=== PATIENT | female | born 1950 | race Caucasian/White ===

== ENCOUNTER 2017-09-26 12:24 | Emergency (ER) | payer MEDICARE, OTHER ==
[2017-09-26 15:05] LABS: URINE PH (Dip) POC 5.5 (5.0-8.5)
[2017-09-26 15:05] LABS: URINE BLOOD (Dip) POC Negative (NEGATIVE); URINE KETONES (Dip) POC Negative (NEGATIVE); URINE LEUKOCYTE EST (Dip) POC Trace (NEGATIVE); URINE NITRITE (Dip) POC Positive (NEGATIVE); URINE TOTAL PROTEIN POC Negative (NEGATIVE)
== END 2017-09-26 15:42 | disposition home or self-care (01) ==
LOC: FTE 12:24
DX: N39.0 Urinary tract infection, site not specified (principal); B37.3 Candidiasis of vulva and vagina; I10 Essential (primary) hypertension; E11.9 Type 2 diabetes mellitus without complications; Z79.4 Long term (current) use of insulin
CPT/HCPCS: 81003; 99284

== ENCOUNTER 2017-11-12 14:20 | Inpatient (IN) | payer MEDICARE, OTHER ==
[2017-11-12] MEDS: LACTATED RINGER'S 1,000 ML IV (17:13)
[2017-11-12 17:19] LABS: ADD MAN DIFF? NO
[2017-11-12 17:22] LABS: WHITE BLOOD COUNT 10.8 10^3/ul (4.8-10.8)
[2017-11-12 17:22] LABS: BASOPHILS % 0.3 % (0.0-2.0); EOSINOPHILS # 0.3 10^3/ul (0.0-0.5); EOSINOPHILS % 2.9 % (0.0-7.0); HEMATOCRIT 37.9 % (37.0-47.0); HEMOGLOBIN 12.9 g/dl (12.0-16.0); LYMPHOCYTES % 27.6 % (15.0-51.0); MEAN CORPUSCULAR HEMOGLOBIN 26.4 pg (29.0-33.0); MEAN CORPUSCULAR VOLUME 77.7 fl (82.0-101.0); MEAN PLATELET VOLUME 12.6 fl (7.4-10.4); MONOCYTE # 0.5 10^3/ul (0.3-0.9); MONOCYTES % 4.4 % (0.0-11.0); NEUTROPHILS % 64.5 % (39.0-77.0); PLATELET COUNT 177 10^3/UL (140-415); RED BLOOD COUNT 4.88 10^6/ul (4.20-5.40); RED CELL DISTRIBUTION WIDTH 13.7 % (11.5-14.5)
[2017-11-12 17:39] LABS: ALANINE AMINOTRANSFERASE 47 IU/L (13-69); ALBUMIN 4.3 g/dl (3.3-4.9); ALBUMIN/GLOBULIN RATIO 1.16; ALKALINE PHOSPHATASE 201 IU/L (42-121); ANION GAP 17 (8-16); ASPARTATE AMINO TRANSFERASE 44 IU/L (15-46); BILIRUBIN,INDIRECT 0.4 mg/dl (0-1.1); BILIRUBIN,TOTAL 0.4 mg/dl (0.2-1.3); BLOOD UREA NITROGEN 15 mg/dl (7-20); CARBON DIOXIDE 30 mmol/L (21-31); CHLORIDE 99 mmol/L (97-110); CREATININE 0.61 mg/dl (0.44-1.00); MAGNESIUM 1.7 mg/dl (1.7-2.5); PHOSPHORUS 3.8 mg/dl (2.5-4.9); SODIUM 142 mmol/L (135-144)
[2017-11-12 17:41] LABS: GLUCOSE 459 mg/dl (70-220)
[2017-11-12] MEDS: CEFEPIME 1GM/50 ML (PMX) 50 ML IVPB (18:33)
[2017-11-12 18:44] LABS: MODE ROOM AIR; MetHgb Venous 0.3 %; Sample Type Blood venous; Site VENOUS LINE; Venous COHb 0.4 %; Venous Fraction OxyHgb 52.4 %; Venous Oxygen Sat 52.8 mmHG (55.0-75.0); Venous Total Hemglobin 10.9 g/dl
[2017-11-12 18:53] LABS: ADD UMIC YES; UR ASCORBIC ACID NEGATIVE (NEGATIVE); UR BACTERIA FEW /HPF (NONE SEEN); UR BILIRUBIN (Dip) NEGATIVE (NEGATIVE); UR BLOOD (Dip) NEGATIVE (NEGATIVE); UR CLARITY SLIGHTLY CLOUDY (CLEAR); UR COLOR YELLOW (YELLOW); UR GLUCOSE (Dip) 3+ mg/dL (NEGATIVE); UR KETONES (Dip) NEGATIVE (NEGATIVE); UR LEUKOCYTE ESTERASE (Dip) 1+ Leu/ul (NEGATIVE); UR NITRITE (Dip) POSITIVE (NEGATIVE); UR RBC 2 /HPF (0-5); UR SPECIFIC GRAVITY (Dip) 1.014 (1.003-1.030); UR TOTAL PROTEIN (Dip) NEGATIVE (NEGATIVE); UR UROBILINOGEN (Dip) NEGATIVE (NEGATIVE); UR WBC 36 /HPF (0-5)
[2017-11-12] MEDS: MAGNESIUM SULFATE 1 GM/D5W 100 ML IVPB (20:10)
[2017-11-12 21:28] LABS: TROPONIN-I < 0.012 ng/ml (0.00-0.12)
[2017-11-13] MEDS ORDERED: ACETAMINOPHEN 325 MG TAB PO (00:30)
[2017-11-13] MEDS ORDERED: ONDANSETRON 4 MG INJ IV ×2 (00:30→06:30)
[2017-11-13] MEDS ORDERED: ALBUTEROL/IPRATROPIUM (NEB) 3 ML AMP HHN (06:30)
[2017-11-13] MEDS ORDERED: DEXTROSE 50% 50 ML SYRINGE IV ×2 (06:30)
[2017-11-13] MEDS ORDERED: GLUCAGON 1 MG INJ IM (06:30)
[2017-11-13] MEDS ORDERED: NACL 0.9% 3 ML SYG IV (06:30)
[2017-11-13] MEDS ORDERED: morphine 2 MG INJ IV (06:30)
[2017-11-13] MEDS ORDERED: GLUCOSE GEL 15 GRAM TUBE PO (06:30)
[2017-11-13] MEDS ORDERED: GLUCOSE GEL 15 GRAM TUBE BUCCAL (06:30)
[2017-11-13] MEDS: SOD CHLORIDE 0.9% 1,000 ML IV ×2 (06:58→16:07)
[2017-11-13] MEDS: CEFTRIAXONE 1 GM/50 ML (PMX) 50 ML IVPB ×2 (06:58→22:14)
[2017-11-13 07:43] LABS: ADD MAN DIFF? NO
[2017-11-13 07:50] LABS: WHITE BLOOD COUNT 8.4 10^3/ul (4.8-10.8)
[2017-11-13 07:50] LABS: BASOPHILS % 0.5 % (0.0-2.0); EOSINOPHILS # 0.3 10^3/ul (0.0-0.5); EOSINOPHILS % 3.9 % (0.0-7.0); HEMATOCRIT 36.5 % (37.0-47.0); HEMOGLOBIN 12.4 g/dl (12.0-16.0); LYMPHOCYTES # 2.8 10^3/ul (0.8-2.9); LYMPHOCYTES % 32.8 % (15.0-51.0); MEAN CORPUSCULAR HEMOGLOBIN 26.3 pg (29.0-33.0); MEAN CORPUSCULAR VOLUME 77.5 fl (82.0-101.0); MEAN PLATELET VOLUME 12.9 fl (7.4-10.4); MONOCYTE # 0.4 10^3/ul (0.3-0.9); MONOCYTES % 4.4 % (0.0-11.0); NEUTROPHIL # 4.9 10^3/ul (1.6-7.5); NEUTROPHILS % 58.2 % (39.0-77.0); PLATELET COUNT 164 10^3/UL (140-415); RED BLOOD COUNT 4.71 10^6/ul (4.20-5.40); RED CELL DISTRIBUTION WIDTH 13.8 % (11.5-14.5)
[2017-11-13] MEDS: GABAPENTIN 300 MG CAP PO ×3 (08:07→22:14)
[2017-11-13] MEDS: LOSARTAN 50 MG TAB PO (08:07)
[2017-11-13] MEDS: METOPROLOL (XL) 50 MG TAB PO (08:07)
[2017-11-13] MEDS: metFORMIN 500 MG TAB PO ×2 (08:07→17:20)
[2017-11-13 08:09] LABS: ALANINE AMINOTRANSFERASE 48 IU/L (13-69); ALBUMIN 3.7 g/dl (3.3-4.9); ALBUMIN/GLOBULIN RATIO 1.08; ALKALINE PHOSPHATASE 142 IU/L (42-121); ANION GAP 15 (8-16); ASPARTATE AMINO TRANSFERASE 49 IU/L (15-46); BILIRUBIN,INDIRECT 0.4 mg/dl (0-1.1); BILIRUBIN,TOTAL 0.4 mg/dl (0.2-1.3); BLOOD UREA NITROGEN 16 mg/dl (7-20); CALCIUM 9.4 mg/dl (8.4-10.2); CARBON DIOXIDE 31 mmol/L (21-31); CHLORIDE 102 mmol/L (97-110); CREATININE 0.63 mg/dl (0.44-1.00); GLUCOSE 361 mg/dl (70-220); POTASSIUM 4.1 mmol/L (3.5-5.1); SODIUM 144 mmol/L (135-144); TOTAL PROTEIN 7.1 g/dl (6.1-8.1)
[2017-11-13] MEDS: INSULIN ASPART [NOVOLOG] 3 ML PEN SC ×6 (08:09→22:16)
[2017-11-13] MEDS: ACETAMINOPHEN 325 MG TAB PO ×2 (08:10→15:24)
[2017-11-13] MEDS: INSULIN ASP PROT/ASPART (70/30) PEN SC (08:25)
[2017-11-13] MEDS ORDERED: INSULIN ISOPHANE SC (09:00)
[2017-11-13] MEDS: LINAGLIPTIN 5 MG TABLET PO (11:12)
[2017-11-13] MEDS: AZITHROMYCIN 500MG/NS (PMX) 250 ML IVPB (11:12)
[2017-11-13] MEDS: ENOXAPARIN 40 MG/0.4 ML SYG SC (11:17)
[2017-11-13 12:07] LABS: CREATINE KINASE 22 IU/L (23-200)
[2017-11-13 12:08] LABS: MAGNESIUM 1.7 mg/dl (1.7-2.5)
[2017-11-13 12:08] LABS: PHOSPHORUS 2.6 mg/dl (2.5-4.9)
[2017-11-13 12:09] LABS: CHOLESTEROL 167 mg/dl (100-200)
[2017-11-13 12:09] LABS: CHOL/HDL RATIO 4.6 RATIO; HDL CHOLESTEROL 36 mg/dl (33-92); LDL CHOLESTEROL,CALCULATED 96 mg/dl; TRIGLYCERIDES 176 mg/dl (0-149)
[2017-11-13 12:23] LABS: CK-MB < 0.22 ng/ml (0.0-2.4); TROPONIN-I < 0.012 ng/ml (0.00-0.12)
[2017-11-13 12:39] LABS: HEPATITIS B SURFACE ANTIGEN NEGATIVE (NEGATIVE)
[2017-11-13 12:57] LABS: HEPATITIS C VIRAL ANTIBODY NEGATIVE (NEGATIVE)
[2017-11-13 12:57] LABS: HEPATITIS B SURFACE ANTIBODY NEGATIVE (NEGATIVE)
[2017-11-14] MEDS: ACCU-CHEK XX (02:35)
[2017-11-14] MEDS: INSULIN ASPART [NOVOLOG] 3 ML PEN SC ×8 (02:41→21:00)
[2017-11-14 05:04] LABS: ADD MAN DIFF? NO
[2017-11-14 05:08] LABS: BASOPHILS % 0.2 % (0.0-2.0); EOSINOPHILS # 0.4 10^3/ul (0.0-0.5); EOSINOPHILS % 3.8 % (0.0-7.0); HEMATOCRIT 35.3 % (37.0-47.0); HEMOGLOBIN 11.9 g/dl (12.0-16.0); LYMPHOCYTES # 2.9 10^3/ul (0.8-2.9); LYMPHOCYTES % 29.8 % (15.0-51.0); MEAN CORPUSCULAR HEMOGLOBIN 26.5 pg (29.0-33.0); MEAN CORPUSCULAR HGB CONC 33.7 g/dl (32.0-37.0); MEAN CORPUSCULAR VOLUME 78.6 fl (82.0-101.0); MEAN PLATELET VOLUME 12.3 fl (7.4-10.4); MONOCYTE # 0.5 10^3/ul (0.3-0.9); MONOCYTES % 5.2 % (0.0-11.0); NEUTROPHIL # 5.8 10^3/ul (1.6-7.5); NEUTROPHILS % 60.6 % (39.0-77.0); PLATELET COUNT 166 10^3/UL (140-415); RED BLOOD COUNT 4.49 10^6/ul (4.20-5.40); RED CELL DISTRIBUTION WIDTH 13.5 % (11.5-14.5)
[2017-11-14 05:08] LABS: WHITE BLOOD COUNT 9.6 10^3/ul (4.8-10.8)
[2017-11-14 05:37] LABS: ANION GAP 13 (8-16); BLOOD UREA NITROGEN 21 mg/dl (7-20); CALCIUM 9.4 mg/dl (8.4-10.2); CARBON DIOXIDE 28 mmol/L (21-31); CHLORIDE 106 mmol/L (97-110); GLUCOSE 343 mg/dl (70-220); MAGNESIUM 1.7 mg/dl (1.7-2.5); PHOSPHORUS 3.3 mg/dl (2.5-4.9); POTASSIUM 3.9 mmol/L (3.5-5.1); SODIUM 143 mmol/L (135-144)
[2017-11-14] MEDS: METOPROLOL (XL) 50 MG TAB PO (08:44)
[2017-11-14] MEDS: LOSARTAN 50 MG TAB PO ×2 (08:44→21:34)
[2017-11-14] MEDS: GABAPENTIN 300 MG CAP PO ×3 (08:44→21:33)
[2017-11-14] MEDS: LINAGLIPTIN 5 MG TABLET PO (08:44)
[2017-11-14] MEDS: metFORMIN 500 MG TAB PO ×2 (08:48→17:45)
[2017-11-14] MEDS: CEFTRIAXONE 1 GM/50 ML (PMX) 50 ML IVPB (08:48)
[2017-11-14] MEDS: ENOXAPARIN 40 MG/0.4 ML SYG SC (08:51)
[2017-11-14] MEDS: INSULIN GLARGINE [LANtus] 3 ML PEN SC (08:51)
[2017-11-14] MEDS: ERTAPENEM SODIUM 1 GM in SOD CHLORIDE 0.9% 100 ML IVPB (11:04)
[2017-11-14 11:39] LABS: HEMOGLOBIN A1C 13.5 % (0-5.9)
[2017-11-14] MEDS: ACETAMINOPHEN 325 MG TAB PO (13:02)
[2017-11-14] MEDS: LIDOCAINE 1% (MPF) 5 ML VIAL SC (13:30)
[2017-11-14] MEDS: MAGNESIUM SULFATE 1 GM/D5W 100 ML IVPB (14:48)
[2017-11-15] MEDS: ACCU-CHEK XX (01:07)
[2017-11-15 08:17] LABS: ADD MAN DIFF? NO
[2017-11-15 08:23] LABS: PLATELET COUNT 156 10^3/UL (140-415)
[2017-11-15 08:26] LABS: BASOPHILS % 0.6 % (0.0-2.0); EOSINOPHILS # 0.3 10^3/ul (0.0-0.5); EOSINOPHILS % 4.4 % (0.0-7.0); HEMATOCRIT 34.6 % (37.0-47.0); LYMPHOCYTES # 2.3 10^3/ul (0.8-2.9); MEAN CORPUSCULAR HEMOGLOBIN 27.2 pg (29.0-33.0); MEAN CORPUSCULAR HGB CONC 34.7 g/dl (32.0-37.0); MEAN CORPUSCULAR VOLUME 78.5 fl (82.0-101.0); MEAN PLATELET VOLUME 12.4 fl (7.4-10.4); MONOCYTE # 0.3 10^3/ul (0.3-0.9); NEUTROPHIL # 4.1 10^3/ul (1.6-7.5); NEUTROPHILS % 57.7 % (39.0-77.0); PLATELET COUNT 152 10^3/UL (140-415); RED BLOOD COUNT 4.41 10^6/ul (4.20-5.40); RED CELL DISTRIBUTION WIDTH 13.8 % (11.5-14.5)
[2017-11-15] MEDS: LINAGLIPTIN 5 MG TABLET PO (08:29)
[2017-11-15] MEDS: GABAPENTIN 300 MG CAP PO ×3 (08:29→20:57)
[2017-11-15] MEDS: ASPIRIN (EC) 81 MG TAB PO (08:29)
[2017-11-15] MEDS: LOSARTAN 50 MG TAB PO ×2 (08:30→20:58)
[2017-11-15] MEDS: ENOXAPARIN 40 MG/0.4 ML SYG SC (08:32)
[2017-11-15] MEDS: metFORMIN 500 MG TAB PO ×2 (08:37→17:33)
[2017-11-15] MEDS: INSULIN GLARGINE [LANtus] 3 ML PEN SC ×2 (08:39→20:58)
[2017-11-15] MEDS: INSULIN ASPART [NOVOLOG] 3 ML PEN SC ×7 (08:40→20:59)
[2017-11-15 08:44] LABS: PROTIME 13.3 Sec (11.9-14.9)
[2017-11-15 08:45] LABS: PARTIAL THROMBOPLASTIN TIME 28.3 Sec (25.0-35.0); THROMBIN TIME 15.1 SEC (13.8-19.1)
[2017-11-15 08:50] LABS: ANION GAP 12 (8-16); BLOOD UREA NITROGEN 18 mg/dl (7-20); CALCIUM 8.9 mg/dl (8.4-10.2); CARBON DIOXIDE 28 mmol/L (21-31); CHLORIDE 105 mmol/L (97-110); CREATININE 0.63 mg/dl (0.44-1.00); GLUCOSE 287 mg/dl (70-220); MAGNESIUM 1.7 mg/dl (1.7-2.5); SODIUM 141 mmol/L (135-144)
[2017-11-15] MEDS: METOPROLOL 25 MG TAB PO ×2 (11:00→20:57)
[2017-11-15] MEDS: ERTAPENEM SODIUM 1 GM in SOD CHLORIDE 0.9% 100 ML IVPB (11:51)
[2017-11-15] MEDS: GABAPENTIN 100 MG CAP PO ×2 (11:52→20:57)
[2017-11-16] MEDS: ACCU-CHEK XX (02:00)
[2017-11-16] MEDS: DEXTROSE 5%-0.45% NACL 1,000 ML IV (04:15)
[2017-11-16 05:53] LABS: ADD MAN DIFF? NO
[2017-11-16 06:02] LABS: BASOPHILS % 0.4 % (0.0-2.0); EOSINOPHILS # 0.4 10^3/ul (0.0-0.5); EOSINOPHILS % 4.3 % (0.0-7.0); HEMATOCRIT 35.9 % (37.0-47.0); HEMOGLOBIN 11.9 g/dl (12.0-16.0); LYMPHOCYTES # 3.1 10^3/ul (0.8-2.9); LYMPHOCYTES % 30.7 % (15.0-51.0); MEAN CORPUSCULAR HGB CONC 33.1 g/dl (32.0-37.0); MEAN CORPUSCULAR VOLUME 78.6 fl (82.0-101.0); MEAN PLATELET VOLUME 12.6 fl (7.4-10.4); MONOCYTE # 0.5 10^3/ul (0.3-0.9); NEUTROPHIL # 5.9 10^3/ul (1.6-7.5); NEUTROPHILS % 59.2 % (39.0-77.0); PLATELET COUNT 155 10^3/UL (140-415); RED BLOOD COUNT 4.57 10^6/ul (4.20-5.40); RED CELL DISTRIBUTION WIDTH 14.1 % (11.5-14.5)
[2017-11-16 06:37] LABS: ALANINE AMINOTRANSFERASE 39 IU/L (13-69); ALBUMIN 3.4 g/dl (3.3-4.9); ALBUMIN/GLOBULIN RATIO 1.13; ALKALINE PHOSPHATASE 101 IU/L (42-121); ANION GAP 13 (8-16); ASPARTATE AMINO TRANSFERASE 27 IU/L (15-46); BILIRUBIN,INDIRECT 0.1 mg/dl (0-1.1); BILIRUBIN,TOTAL 0.1 mg/dl (0.2-1.3); BLOOD UREA NITROGEN 19 mg/dl (7-20); CALCIUM 9.1 mg/dl (8.4-10.2); CARBON DIOXIDE 29 mmol/L (21-31); CHLORIDE 107 mmol/L (97-110); CREATININE 0.68 mg/dl (0.44-1.00); GLUCOSE 160 mg/dl (70-220); MAGNESIUM 1.6 mg/dl (1.7-2.5); POTASSIUM 3.9 mmol/L (3.5-5.1); SODIUM 145 mmol/L (135-144); TOTAL PROTEIN 6.4 g/dl (6.1-8.1)
[2017-11-16] MEDS: INSULIN ASPART [NOVOLOG] 3 ML PEN SC ×7 (07:35→21:23)
[2017-11-16] MEDS: metFORMIN 500 MG TAB PO ×2 (07:36→17:56)
[2017-11-16] MEDS: ASPIRIN (EC) 81 MG TAB PO (08:36)
[2017-11-16] MEDS: GABAPENTIN 300 MG CAP PO ×2 (08:36→12:31)
[2017-11-16] MEDS: LINAGLIPTIN 5 MG TABLET PO (08:36)
[2017-11-16] MEDS: GABAPENTIN 100 MG CAP PO ×3 (08:36→21:24)
[2017-11-16] MEDS: ENOXAPARIN 40 MG/0.4 ML SYG SC (08:37)
[2017-11-16] MEDS: INSULIN GLARGINE [LANtus] 3 ML PEN SC ×2 (08:56→21:24)
[2017-11-16] MEDS: METOPROLOL 25 MG TAB PO ×2 (10:16→21:25)
[2017-11-16] MEDS: LOSARTAN 50 MG TAB PO ×2 (10:16→21:25)
[2017-11-16] MEDS: ERTAPENEM SODIUM 1 GM in SOD CHLORIDE 0.9% 100 ML IVPB (10:17)
[2017-11-16] MEDS ORDERED: LIDOCAINE 1% (MPF) 30 ML INJ (13:27)
[2017-11-16 13:42] LABS: NIL 0.04 IU/mL; QUANTIFERON(R)-TB GOLD POSITIVE (NEGATIVE); TB-NIL 2.63 IU/mL
[2017-11-16] MEDS ORDERED: ROCURONIUM 50 MG INJ (14:07)
[2017-11-16] MEDS ORDERED: DEXAMETHASONE 4 MG/ML 1 ML INJ (14:07)
[2017-11-16] MEDS ORDERED: GLYCOPYRROLATE 0.4 MG INJ (14:07)
[2017-11-16] MEDS ORDERED: MIDAZOLAM 1 MG/ML 2 ML INJ (14:07)
[2017-11-16] MEDS ORDERED: CEFAZOLIN 1 GM INJ (14:07)
[2017-11-16] MEDS ORDERED: PROPOFOL 20 ML (14:07)
[2017-11-16] MEDS ORDERED: FENTAnyl 50 MCG/ML VIAL (14:07)
[2017-11-16] MEDS ORDERED: NEOSTIGMINE 3 MG/3 ML SYRINGE (14:07)
[2017-11-16] MEDS ORDERED: ONDANSETRON 4 MG INJ (14:07)
[2017-11-16] MEDS ORDERED: LABETALOL HCL 20MG INJ (14:40)
[2017-11-16] MEDS ORDERED: SUGAMMADEX SODIUM 200 MG/2 ML VIAL IV (14:40)
[2017-11-16] MEDS: MAGNESIUM SULFATE 2 GM/50 ML 50 ML IVPB (16:53)
[2017-11-16 18:43] LABS: HEMATOCRIT 33.4 % (37.0-47.0); HEMOGLOBIN 11.3 g/dl (12.0-16.0)
[2017-11-17 01:27] LABS: HEMATOCRIT 33.4 % (37.0-47.0); HEMOGLOBIN 11.1 g/dl (12.0-16.0)
[2017-11-17] MEDS: ACCU-CHEK XX (01:31)
[2017-11-17 06:22] LABS: ADD MAN DIFF? NO
[2017-11-17 06:31] LABS: WHITE BLOOD COUNT 9.6 10^3/ul (4.8-10.8)
[2017-11-17 06:31] LABS: BASOPHILS % 0.1 % (0.0-2.0); HEMATOCRIT 31.6 % (37.0-47.0); HEMOGLOBIN 10.7 g/dl (12.0-16.0); LYMPHOCYTES # 1.4 10^3/ul (0.8-2.9); MEAN CORPUSCULAR HEMOGLOBIN 26.7 pg (29.0-33.0); MEAN CORPUSCULAR HGB CONC 33.9 g/dl (32.0-37.0); MEAN CORPUSCULAR VOLUME 78.8 fl (82.0-101.0); MEAN PLATELET VOLUME 12.2 fl (7.4-10.4); MONOCYTE # 0.2 10^3/ul (0.3-0.9); MONOCYTES % 2.3 % (0.0-11.0); NEUTROPHIL # 7.9 10^3/ul (1.6-7.5); NEUTROPHILS % 82.3 % (39.0-77.0); PLATELET COUNT 149 10^3/UL (140-415); RED BLOOD COUNT 4.01 10^6/ul (4.20-5.40); RED CELL DISTRIBUTION WIDTH 14.2 % (11.5-14.5)
[2017-11-17 06:55] LABS: ALANINE AMINOTRANSFERASE 35 IU/L (13-69); ALBUMIN 3.5 g/dl (3.3-4.9); ALKALINE PHOSPHATASE 71 IU/L (42-121); ANION GAP 17 (8-16); ASPARTATE AMINO TRANSFERASE 27 IU/L (15-46); BILIRUBIN,INDIRECT 0.1 mg/dl (0-1.1); BILIRUBIN,TOTAL 0.1 mg/dl (0.2-1.3); BLOOD UREA NITROGEN 20 mg/dl (7-20); CALCIUM 9.1 mg/dl (8.4-10.2); CARBON DIOXIDE 25 mmol/L (21-31); CHLORIDE 107 mmol/L (97-110); CREATININE 0.67 mg/dl (0.44-1.00); GLUCOSE 230 mg/dl (70-220); POTASSIUM 4.4 mmol/L (3.5-5.1); SODIUM 145 mmol/L (135-144); TOTAL PROTEIN 6.4 g/dl (6.1-8.1)
[2017-11-17] MEDS: ASPIRIN (EC) 81 MG TAB PO (08:48)
[2017-11-17] MEDS: LINAGLIPTIN 5 MG TABLET PO (08:48)
[2017-11-17] MEDS: GABAPENTIN 100 MG CAP PO ×3 (08:48→21:08)
[2017-11-17] MEDS: METOPROLOL 25 MG TAB PO ×2 (08:49→21:02)
[2017-11-17] MEDS: LOSARTAN 50 MG TAB PO ×2 (08:49→21:02)
[2017-11-17] MEDS: INSULIN GLARGINE [LANtus] 3 ML PEN SC ×2 (08:50→21:04)
[2017-11-17] MEDS: INSULIN ASPART [NOVOLOG] 3 ML PEN SC ×7 (08:51→21:00)
[2017-11-17] MEDS: metFORMIN 500 MG TAB PO ×2 (08:54→17:08)
[2017-11-17] MEDS: ERTAPENEM SODIUM 1 GM in SOD CHLORIDE 0.9% 100 ML IVPB (09:48)
[2017-11-17 11:08] LABS: HEMATOCRIT 31.9 % (37.0-47.0); HEMOGLOBIN 10.8 g/dl (12.0-16.0)
[2017-11-17 16:40] LABS: HIV 1&2 ANTIBODY NEGATIVE (NEGATIVE)
[2017-11-17 16:53] LABS: HEMATOCRIT 30.1 % (37.0-47.0); HEMOGLOBIN 10.2 g/dl (12.0-16.0)
[2017-11-17 19:20] LABS: HEMATOCRIT 29.6 % (37.0-47.0); HEMOGLOBIN 10.1 g/dl (12.0-16.0)
[2017-11-17] MEDS: ACETAMINOPHEN 325 MG TAB PO (21:01)
[2017-11-18 01:05] LABS: HEMATOCRIT 29.1 % (37.0-47.0); HEMOGLOBIN 9.8 g/dl (12.0-16.0)
[2017-11-18] MEDS: ACCU-CHEK XX (02:00)
[2017-11-18 06:16] LABS: ADD MAN DIFF? NO
[2017-11-18 06:27] LABS: BASOPHILS % 0.2 % (0.0-2.0); EOSINOPHILS # 0.4 10^3/ul (0.0-0.5); EOSINOPHILS % 3.3 % (0.0-7.0); HEMATOCRIT 30.3 % (37.0-47.0); HEMOGLOBIN 10.2 g/dl (12.0-16.0); LYMPHOCYTES % 32.5 % (15.0-51.0); MEAN CORPUSCULAR HEMOGLOBIN 26.9 pg (29.0-33.0); MEAN CORPUSCULAR HGB CONC 33.7 g/dl (32.0-37.0); MEAN CORPUSCULAR VOLUME 79.9 fl (82.0-101.0); MEAN PLATELET VOLUME 12.1 fl (7.4-10.4); MONOCYTE # 0.6 10^3/ul (0.3-0.9); MONOCYTES % 4.5 % (0.0-11.0); NEUTROPHIL # 7.2 10^3/ul (1.6-7.5); PLATELET COUNT 141 10^3/UL (140-415); RED BLOOD COUNT 3.79 10^6/ul (4.20-5.40); RED CELL DISTRIBUTION WIDTH 14.5 % (11.5-14.5)
[2017-11-18 06:27] LABS: WHITE BLOOD COUNT 12.2 10^3/ul (4.8-10.8)
[2017-11-18 06:49] LABS: ANION GAP 14 (8-16); BLOOD UREA NITROGEN 19 mg/dl (7-20); CALCIUM 8.9 mg/dl (8.4-10.2); CARBON DIOXIDE 25 mmol/L (21-31); CHLORIDE 108 mmol/L (97-110); CREATININE 0.61 mg/dl (0.44-1.00); GLUCOSE 138 mg/dl (70-220); POTASSIUM 3.9 mmol/L (3.5-5.1); SODIUM 143 mmol/L (135-144)
[2017-11-18] MEDS: INSULIN GLARGINE [LANtus] 3 ML PEN SC ×2 (08:51→20:39)
[2017-11-18] MEDS: INSULIN ASPART [NOVOLOG] 3 ML PEN SC ×7 (08:52→20:40)
[2017-11-18] MEDS: metFORMIN 500 MG TAB PO ×2 (08:53→17:42)
[2017-11-18] MEDS: GABAPENTIN 100 MG CAP PO ×3 (08:54→20:37)
[2017-11-18] MEDS: ASPIRIN (EC) 81 MG TAB PO (08:54)
[2017-11-18] MEDS: METOPROLOL 25 MG TAB PO ×2 (08:54→20:37)
[2017-11-18] MEDS: LOSARTAN 50 MG TAB PO ×2 (08:54→20:38)
[2017-11-18] MEDS: LINAGLIPTIN 5 MG TABLET PO (08:55)
[2017-11-18] MEDS: ERTAPENEM SODIUM 1 GM in SOD CHLORIDE 0.9% 100 ML IVPB (11:35)
[2017-11-19] MEDS: ACCU-CHEK XX (02:00)
[2017-11-19] MEDS: ACETAMINOPHEN 325 MG TAB PO ×3 (02:13→20:17)
[2017-11-19 05:30] LABS: ADD MAN DIFF? NO
[2017-11-19 05:37] LABS: BASOPHILS % 0.2 % (0.0-2.0); EOSINOPHILS # 0.4 10^3/ul (0.0-0.5); EOSINOPHILS % 3.5 % (0.0-7.0); HEMATOCRIT 30.9 % (37.0-47.0); HEMOGLOBIN 10.5 g/dl (12.0-16.0); LYMPHOCYTES # 3.2 10^3/ul (0.8-2.9); LYMPHOCYTES % 25.8 % (15.0-51.0); MEAN CORPUSCULAR HEMOGLOBIN 26.7 pg (29.0-33.0); MEAN CORPUSCULAR VOLUME 78.6 fl (82.0-101.0); MONOCYTE # 0.7 10^3/ul (0.3-0.9); MONOCYTES % 6.1 % (0.0-11.0); NEUTROPHIL # 7.8 10^3/ul (1.6-7.5); NEUTROPHILS % 64.1 % (39.0-77.0); PLATELET COUNT 158 10^3/UL (140-415); RED BLOOD COUNT 3.93 10^6/ul (4.20-5.40); RED CELL DISTRIBUTION WIDTH 13.8 % (11.5-14.5)
[2017-11-19 05:37] LABS: WHITE BLOOD COUNT 12.2 10^3/ul (4.8-10.8)
[2017-11-19 06:02] LABS: ANION GAP 13 (8-16); BLOOD UREA NITROGEN 13 mg/dl (7-20); CARBON DIOXIDE 28 mmol/L (21-31); CHLORIDE 107 mmol/L (97-110); CREATININE 0.59 mg/dl (0.44-1.00); GLUCOSE 148 mg/dl (70-220); POTASSIUM 3.6 mmol/L (3.5-5.1); SODIUM 144 mmol/L (135-144)
[2017-11-19] MEDS: LINAGLIPTIN 5 MG TABLET PO (08:59)
[2017-11-19] MEDS: GABAPENTIN 100 MG CAP PO ×3 (09:00→20:22)
[2017-11-19] MEDS: metFORMIN 500 MG TAB PO ×2 (09:00→17:34)
[2017-11-19] MEDS: LOSARTAN 50 MG TAB PO ×2 (09:00→20:17)
[2017-11-19] MEDS: ASPIRIN (EC) 81 MG TAB PO (09:00)
[2017-11-19] MEDS: METOPROLOL 25 MG TAB PO ×2 (09:00→20:18)
[2017-11-19] MEDS: ERTAPENEM SODIUM 1 GM in SOD CHLORIDE 0.9% 100 ML IVPB (09:02)
[2017-11-19] MEDS: INSULIN GLARGINE [LANtus] 3 ML PEN SC ×2 (09:03→20:17)
[2017-11-19] MEDS: INSULIN ASPART [NOVOLOG] 3 ML PEN SC ×7 (09:04→20:22)
[2017-11-19] MEDS: metFORMIN (XR) 500 MG TAB PO (19:05)
[2017-11-19] MEDS: IBUPROFEN 600 MG TAB PO (22:39)
[2017-11-20] MEDS: ACCU-CHEK XX (02:00)
[2017-11-20 06:28] LABS: ADD MAN DIFF? NO
[2017-11-20 06:30] LABS: BASOPHILS % 0.3 % (0.0-2.0); EOSINOPHILS # 0.4 10^3/ul (0.0-0.5); EOSINOPHILS % 4.2 % (0.0-7.0); HEMATOCRIT 31.3 % (37.0-47.0); HEMOGLOBIN 10.8 g/dl (12.0-16.0); LYMPHOCYTES # 3.1 10^3/ul (0.8-2.9); LYMPHOCYTES % 29.5 % (15.0-51.0); MEAN CORPUSCULAR HEMOGLOBIN 27.1 pg (29.0-33.0); MEAN CORPUSCULAR HGB CONC 34.5 g/dl (32.0-37.0); MEAN CORPUSCULAR VOLUME 78.4 fl (82.0-101.0); MEAN PLATELET VOLUME 11.9 fl (7.4-10.4); MONOCYTE # 0.6 10^3/ul (0.3-0.9); MONOCYTES % 5.7 % (0.0-11.0); NEUTROPHIL # 6.3 10^3/ul (1.6-7.5); NEUTROPHILS % 59.8 % (39.0-77.0); PLATELET COUNT 148 10^3/UL (140-415); RED BLOOD COUNT 3.99 10^6/ul (4.20-5.40); RED CELL DISTRIBUTION WIDTH 13.7 % (11.5-14.5)
[2017-11-20 06:30] LABS: WHITE BLOOD COUNT 10.5 10^3/ul (4.8-10.8)
[2017-11-20 06:56] LABS: ANION GAP 12 (8-16); BLOOD UREA NITROGEN 12 mg/dl (7-20); CALCIUM 8.7 mg/dl (8.4-10.2); CARBON DIOXIDE 28 mmol/L (21-31); CHLORIDE 106 mmol/L (97-110); CREATININE 0.62 mg/dl (0.44-1.00); GLUCOSE 113 mg/dl (70-220); POTASSIUM 3.6 mmol/L (3.5-5.1); SODIUM 142 mmol/L (135-144)
[2017-11-20 07:52] LABS: MAGNESIUM 1.5 mg/dl (1.7-2.5)
[2017-11-20 07:52] LABS: PHOSPHORUS 4.4 mg/dl (2.5-4.9)
[2017-11-20] MEDS: ASPIRIN (EC) 81 MG TAB PO (08:27)
[2017-11-20] MEDS: LINAGLIPTIN 5 MG TABLET PO (08:27)
[2017-11-20] MEDS: GABAPENTIN 100 MG CAP PO ×3 (08:28→20:16)
[2017-11-20] MEDS: METOPROLOL 25 MG TAB PO ×2 (08:28→20:18)
[2017-11-20] MEDS: metFORMIN (XR) 500 MG TAB PO ×2 (08:28→17:53)
[2017-11-20] MEDS: LOSARTAN 50 MG TAB PO ×2 (08:28→20:16)
[2017-11-20] MEDS: ENOXAPARIN 40 MG/0.4 ML SYG SC (08:29)
[2017-11-20] MEDS: INSULIN GLARGINE [LANtus] 3 ML PEN SC ×2 (08:32→20:19)
[2017-11-20] MEDS: INSULIN ASPART [NOVOLOG] 3 ML PEN SC ×7 (08:33→20:18)
[2017-11-20] MEDS: ERTAPENEM SODIUM 1 GM in SOD CHLORIDE 0.9% 100 ML IVPB (10:54)
[2017-11-20 15:07] LABS: C-PEPTIDE 1.61 ng/mL (0.80-3.85)
[2017-11-20] MEDS: MAGNESIUM SULFATE 2 GM/50 ML 50 ML IVPB (17:53)
[2017-11-20] MEDS: ACETAMINOPHEN 325 MG TAB PO (20:16)
[2017-11-21] MEDS: ACCU-CHEK XX (02:00)
[2017-11-21 05:43] LABS: ADD MAN DIFF? NO
[2017-11-21 05:46] LABS: WHITE BLOOD COUNT 11.5 10^3/ul (4.8-10.8)
[2017-11-21 05:46] LABS: BASOPHILS % 0.2 % (0.0-2.0); EOSINOPHILS # 0.5 10^3/ul (0.0-0.5); EOSINOPHILS % 4.3 % (0.0-7.0); HEMATOCRIT 30.8 % (37.0-47.0); HEMOGLOBIN 10.5 g/dl (12.0-16.0); LYMPHOCYTES # 2.8 10^3/ul (0.8-2.9); LYMPHOCYTES % 24.5 % (15.0-51.0); MEAN CORPUSCULAR HEMOGLOBIN 26.6 pg (29.0-33.0); MEAN CORPUSCULAR HGB CONC 34.1 g/dl (32.0-37.0); MEAN PLATELET VOLUME 11.7 fl (7.4-10.4); MONOCYTE # 0.7 10^3/ul (0.3-0.9); MONOCYTES % 5.8 % (0.0-11.0); NEUTROPHIL # 7.5 10^3/ul (1.6-7.5); NEUTROPHILS % 64.8 % (39.0-77.0); PLATELET COUNT 181 10^3/UL (140-415); RED BLOOD COUNT 3.95 10^6/ul (4.20-5.40); RED CELL DISTRIBUTION WIDTH 13.9 % (11.5-14.5)
[2017-11-21 06:15] LABS: MAGNESIUM 1.9 mg/dl (1.7-2.5)
[2017-11-21 06:16] LABS: ANION GAP 10 (8-16); BLOOD UREA NITROGEN 12 mg/dl (7-20); CARBON DIOXIDE 29 mmol/L (21-31); CHLORIDE 106 mmol/L (97-110); CREATININE 0.57 mg/dl (0.44-1.00); GLUCOSE 83 mg/dl (70-220); POTASSIUM 3.3 mmol/L (3.5-5.1); SODIUM 142 mmol/L (135-144)
[2017-11-21] MEDS: INSULIN ASPART [NOVOLOG] 3 ML PEN SC ×7 (08:00→21:00)
[2017-11-21] MEDS: GABAPENTIN 100 MG CAP PO ×3 (08:47→23:02)
[2017-11-21] MEDS: INSULIN GLARGINE [LANtus] 3 ML PEN SC ×2 (08:47→23:04)
[2017-11-21] MEDS: ENOXAPARIN 40 MG/0.4 ML SYG SC (08:47)
[2017-11-21] MEDS: LINAGLIPTIN 5 MG TABLET PO (08:47)
[2017-11-21] MEDS: METOPROLOL 25 MG TAB PO ×2 (08:48→23:02)
[2017-11-21] MEDS: metFORMIN (XR) 500 MG TAB PO ×2 (08:48→17:59)
[2017-11-21] MEDS: ASPIRIN (EC) 81 MG TAB PO (08:48)
[2017-11-21] MEDS: LOSARTAN 50 MG TAB PO ×2 (08:49→23:02)
[2017-11-21] MEDS: ERTAPENEM SODIUM 1 GM in SOD CHLORIDE 0.9% 100 ML IVPB (09:47)
[2017-11-21] MEDS: POTASSIUM CHLORIDE (SR) 10 MEQ TAB PO (12:00)
[2017-11-21 21:04] LABS: CRYPTOCOCCAL ANTIGEN - SOURCE Serum
[2017-11-21] MEDS: ACETAMINOPHEN 325 MG TAB PO (23:02)
[2017-11-22] MEDS: ACCU-CHEK XX (02:00)
[2017-11-22 07:41] LABS: ADD MAN DIFF? NO
[2017-11-22 07:50] LABS: BASOPHILS % 0.2 % (0.0-2.0); EOSINOPHILS # 0.4 10^3/ul (0.0-0.5); EOSINOPHILS % 3.9 % (0.0-7.0); HEMATOCRIT 30.6 % (37.0-47.0); HEMOGLOBIN 10.3 g/dl (12.0-16.0); LYMPHOCYTES # 2.3 10^3/ul (0.8-2.9); LYMPHOCYTES % 22.8 % (15.0-51.0); MEAN CORPUSCULAR HEMOGLOBIN 26.3 pg (29.0-33.0); MEAN CORPUSCULAR HGB CONC 33.7 g/dl (32.0-37.0); MEAN CORPUSCULAR VOLUME 78.3 fl (82.0-101.0); MONOCYTE # 0.6 10^3/ul (0.3-0.9); MONOCYTES % 6.4 % (0.0-11.0); NEUTROPHIL # 6.7 10^3/ul (1.6-7.5); NEUTROPHILS % 66.5 % (39.0-77.0); PLATELET COUNT 219 10^3/UL (140-415); RED BLOOD COUNT 3.91 10^6/ul (4.20-5.40); RED CELL DISTRIBUTION WIDTH 13.7 % (11.5-14.5)
[2017-11-22 07:50] LABS: WHITE BLOOD COUNT 10.1 10^3/ul (4.8-10.8)
[2017-11-22] MEDS: INSULIN ASPART [NOVOLOG] 3 ML PEN SC ×7 (08:00→21:00)
[2017-11-22 08:19] LABS: MAGNESIUM 1.5 mg/dl (1.7-2.5)
[2017-11-22 08:19] LABS: PHOSPHORUS 3.4 mg/dl (2.5-4.9)
[2017-11-22 08:20] LABS: ANION GAP 13 (8-16); BLOOD UREA NITROGEN 11 mg/dl (7-20); CARBON DIOXIDE 27 mmol/L (21-31); CHLORIDE 106 mmol/L (97-110); CREATININE 0.53 mg/dl (0.44-1.00); GLUCOSE 107 mg/dl (70-220); POTASSIUM 4.1 mmol/L (3.5-5.1); SODIUM 142 mmol/L (135-144)
[2017-11-22] MEDS: INSULIN GLARGINE [LANtus] 3 ML PEN SC ×2 (08:58→21:28)
[2017-11-22] MEDS: ENOXAPARIN 40 MG/0.4 ML SYG SC (08:59)
[2017-11-22] MEDS: metFORMIN (XR) 500 MG TAB PO ×2 (09:03→18:06)
[2017-11-22] MEDS: LOSARTAN 50 MG TAB PO ×2 (09:03→21:19)
[2017-11-22] MEDS: ASPIRIN (EC) 81 MG TAB PO (09:03)
[2017-11-22] MEDS: METOPROLOL 25 MG TAB PO ×2 (09:05→21:19)
[2017-11-22] MEDS: GABAPENTIN 100 MG CAP PO ×3 (09:05→21:18)
[2017-11-22] MEDS: LINAGLIPTIN 5 MG TABLET PO (09:06)
[2017-11-22] MEDS: ERTAPENEM SODIUM 1 GM in SOD CHLORIDE 0.9% 100 ML IVPB (09:12)
[2017-11-22] MEDS: MAGNESIUM SULFATE 2 GM/50 ML 50 ML IVPB (16:52)
[2017-11-22] MEDS: BISMUTH SUBSALICYLATE 120 ML BTL PO ×2 (16:53→17:15)
[2017-11-22] MEDS: BISMUTH SUBSALICYLATE 240 ML BTL PO (17:17)
[2017-11-22] MEDS: GLUCOSE GEL 15 GRAM TUBE PO (17:25)
[2017-11-22] MEDS: ACET/BUTAL/CAFF TAB PO (21:22)
[2017-11-23] MEDS: ACCU-CHEK XX (02:00)
[2017-11-23] MEDS: ASPIRIN (EC) 81 MG TAB PO (08:34)
[2017-11-23] MEDS: GABAPENTIN 100 MG CAP PO ×2 (08:34→12:47)
[2017-11-23] MEDS: LOSARTAN 50 MG TAB PO (08:34)
[2017-11-23] MEDS: LINAGLIPTIN 5 MG TABLET PO (08:34)
[2017-11-23] MEDS: metFORMIN (XR) 500 MG TAB PO ×2 (08:34→17:17)
[2017-11-23] MEDS: METOPROLOL 25 MG TAB PO (08:35)
[2017-11-23] MEDS: ENOXAPARIN 40 MG/0.4 ML SYG SC (08:38)
[2017-11-23] MEDS: INSULIN ASPART [NOVOLOG] 3 ML PEN SC ×6 (08:39→17:15)
[2017-11-23] MEDS: INSULIN GLARGINE [LANtus] 3 ML PEN SC (08:40)
[2017-11-23] MEDS: ERTAPENEM SODIUM 1 GM in SOD CHLORIDE 0.9% 100 ML IVPB (11:00)
== END 2017-11-23 20:48 | disposition home or self-care (01) | DRG 166 ==
LOC: MS3 11-13 00:02 → MS4 11-14 05:30 → PP2 11-18 05:09 → E/R 14:20 → PP2 11-15 16:03
PROVIDERS: Internal Medicine
PROC: 0BBC8ZX Excision of Right Upper Lung Lobe, Via Natural or Artificial Opening Endoscopic, Diagnostic (ICD-10-PCS; principal; 2017-11-16 13:00)
PROC: 0B9C8ZX Drainage of Right Upper Lung Lobe, Via Natural or Artificial Opening Endoscopic, Diagnostic (ICD-10-PCS; 2017-11-16 13:00)
PROC: 02HV33Z Insertion of Infusion Device into Superior Vena Cava, Percutaneous Approach (ICD-10-PCS; 2017-11-16 14:00)
DX: J21.9 Acute bronchiolitis, unspecified (principal); J18.9 Pneumonia, unspecified organism; I50.30 Unspecified diastolic (congestive) heart failure; R65.10 Systemic inflammatory response syndrome (SIRS) of non-infectious origin without acute organ dysfunction; E11.40 Type 2 diabetes mellitus with diabetic neuropathy, unspecified; N39.0 Urinary tract infection, site not specified; A15.9 Respiratory tuberculosis unspecified; K76.0 Fatty (change of) liver, not elsewhere classified; R91.1 Solitary pulmonary nodule; R05 Cough; I10 Essential (primary) hypertension; B96.20 Unspecified Escherichia coli [E. coli] as the cause of diseases classified elsewhere; E11.65 Type 2 diabetes mellitus with hyperglycemia; E78.5 Hyperlipidemia, unspecified; R59.1 Generalized enlarged lymph nodes; R07.89 Other chest pain
CPT/HCPCS: 36415; 36569; 71045; 71250; 76705; 76937; 80048; 80053; 80061; 81001; 82550; 82553; 82803; 82962; 83036; 83735; 84100; 84443; 84484; 84681; 85014; 85018; 85025; 85049; 85610; 85670; 85730; 86480; 86635; 86641; 86703; 86706; 86803; 87040; 87070; 87075; 87086; 87102; 87116; 87340; 88307; 93005; 93306; 96374; 96375; 99285-25; G0378

== ENCOUNTER 2018-02-13 14:42 | Emergency (ER) | payer MEDICARE, OTHER ==
[2018-02-13 16:49] LABS: URINE PH (Dip) POC 5.5 (5.0-8.5)
[2018-02-13 16:49] LABS: URINE BLOOD (Dip) POC 2+ (NEGATIVE); URINE KETONES (Dip) POC Negative (NEGATIVE); URINE LEUKOCYTE EST (Dip) POC 3+ (NEGATIVE); URINE NITRITE (Dip) POC Positive (NEGATIVE); URINE TOTAL PROTEIN POC 1+ (NEGATIVE)
[2018-02-13] MEDS: LIDOCAINE 1% (MDV) 10 ML INJ INJ (17:10)
[2018-02-13] MEDS: CEFTRIAXONE 1 GM INJ IM (17:10)
== END 2018-02-13 17:33 | disposition home or self-care (01) ==
LOC: FTE 14:42
DX: R30.0 Dysuria (principal); I10 Essential (primary) hypertension; E11.9 Type 2 diabetes mellitus without complications; Z79.4 Long term (current) use of insulin
CPT/HCPCS: 81003; 87086; 96372; 99284-25

== ENCOUNTER 2018-02-21 13:35 | Emergency (ER) | payer MEDICARE, OTHER | END 2018-02-21 14:40 | disposition home or self-care (01) | LOC: E/R 13:35 | DX: R30.0 Dysuria (principal); I10 Essential (primary) hypertension; E11.9 Type 2 diabetes mellitus without complications; Z79.4 Long term (current) use of insulin | CPT/HCPCS: 99282 ==

== ENCOUNTER 2018-02-25 05:40 | Emergency (ER) | payer MEDICARE, OTHER ==
[2018-02-25] MEDS ORDERED: ONDANSETRON 4 MG INJ (06:28)
[2018-02-25] MEDS ORDERED: HYDROmorphONE 1 MG/ML SYG (06:28)
[2018-02-25 06:30] LABS: WHITE BLOOD COUNT 8.5 10^3/ul (4.8-10.8)
[2018-02-25 06:30] LABS: ADD MAN DIFF? NO; BASOPHILS % 0.4 % (0.0-2.0); EOSINOPHILS # 0.3 10^3/ul (0.0-0.5); EOSINOPHILS % 3.9 % (0.0-7.0); HEMATOCRIT 34.3 % (37.0-47.0); HEMOGLOBIN 11.7 g/dl (12.0-16.0); LYMPHOCYTES # 3.8 10^3/ul (0.8-2.9); LYMPHOCYTES % 44.6 % (15.0-51.0); MEAN CORPUSCULAR HEMOGLOBIN 26.7 pg (29.0-33.0); MEAN CORPUSCULAR HGB CONC 34.1 g/dl (32.0-37.0); MEAN CORPUSCULAR VOLUME 78.1 fl (82.0-101.0); MEAN PLATELET VOLUME 12.3 fl (7.4-10.4); MONOCYTE # 0.4 10^3/ul (0.3-0.9); MONOCYTES % 5.1 % (0.0-11.0); NEUTROPHIL # 3.9 10^3/ul (1.6-7.5); NEUTROPHILS % 45.9 % (39.0-77.0); PLATELET COUNT 138 10^3/UL (140-415); RED BLOOD COUNT 4.39 10^6/ul (4.20-5.40); RED CELL DISTRIBUTION WIDTH 13.2 % (11.5-14.5)
[2018-02-25] MEDS: HYDROmorphONE 1 MG/ML SYG IV (06:32)
[2018-02-25] MEDS: SOD CHLORIDE 0.9% 1,000 ML IV (06:32)
[2018-02-25] MEDS: ONDANSETRON 4 MG INJ IV ×2 (06:33→12:35)
[2018-02-25 06:51] LABS: INR 1.01; PROTIME 13.4 Sec (11.9-14.9)
[2018-02-25 06:52] LABS: PARTIAL THROMBOPLASTIN TIME 25.5 Sec (25.0-35.0)
[2018-02-25 06:56] LABS: ALANINE AMINOTRANSFERASE 38 IU/L (13-69); ALBUMIN/GLOBULIN RATIO 1.17; ALKALINE PHOSPHATASE 130 IU/L (42-121); AMYLASE 82 U/L (11-123); ANION GAP 13 (8-16); ASPARTATE AMINO TRANSFERASE 31 IU/L (15-46); BILIRUBIN,INDIRECT 0.3 mg/dl (0-1.1); BILIRUBIN,TOTAL 0.3 mg/dl (0.2-1.3); BLOOD UREA NITROGEN 16 mg/dl (7-20); CALCIUM 9.1 mg/dl (8.4-10.2); CARBON DIOXIDE 28 mmol/L (21-31); CHLORIDE 102 mmol/L (97-110); CREATININE 0.63 mg/dl (0.44-1.00); GLUCOSE 241 mg/dl (70-220); LIPASE 217 U/L (23-300); POTASSIUM 3.5 mmol/L (3.5-5.1); SODIUM 139 mmol/L (135-144); TOTAL PROTEIN 7.4 g/dl (6.1-8.1)
[2018-02-25 08:05] LABS: TROPONIN-I < 0.010 ng/ml (0.000-0.120)
[2018-02-25] MEDS: DIPHENOXYLATE/ATROPINE TAB PO (11:30)
[2018-02-25] MEDS: LIDOCAINE/MYLANTA 40 ML BTL PO (13:40)
== END 2018-02-25 13:43 | disposition home or self-care (01) ==
LOC: WCC 05:40
DX: K57.30 Diverticulosis of large intestine without perforation or abscess without bleeding (principal); R19.7 Diarrhea, unspecified; I10 Essential (primary) hypertension; E11.9 Type 2 diabetes mellitus without complications; R10.9 Unspecified abdominal pain; Z79.4 Long term (current) use of insulin
CPT/HCPCS: 36415; 71045; 74176; 80053; 82150; 83690; 84484; 85025; 85610; 85730; 93005; 96374; 96375; 99285-25

== ENCOUNTER 2018-04-24 14:42 | Emergency (ER) | payer MEDICARE, OTHER ==
[2018-04-24 15:53] LABS: URINE BLOOD (Dip) POC Negative (NEGATIVE); URINE KETONES (Dip) POC Negative (NEGATIVE); URINE LEUKOCYTE EST (Dip) POC Negative (NEGATIVE); URINE NITRITE (Dip) POC Negative (NEGATIVE); URINE TOTAL PROTEIN POC Negative (NEGATIVE)
[2018-04-24 15:53] LABS: URINE PH (Dip) POC 5.5 (5.0-8.5)
== END 2018-04-24 16:30 | disposition home or self-care (01) ==
LOC: FTE 14:42
DX: B02.9 Zoster without complications (principal); R30.0 Dysuria; I10 Essential (primary) hypertension; E11.9 Type 2 diabetes mellitus without complications; Z79.4 Long term (current) use of insulin
CPT/HCPCS: 81003; 99283

== ENCOUNTER 2018-06-05 19:51 | Emergency (ER) | payer MEDICARE, OTHER ==
[2018-06-05 22:29] LABS: ADD MAN DIFF? NO
[2018-06-05 22:44] LABS: BASOPHILS % 0.3 % (0.0-2.0); EOSINOPHILS # 0.2 10^3/ul (0.0-0.5); EOSINOPHILS % 1.1 % (0.0-7.0); HEMATOCRIT 35.7 % (37.0-47.0); HEMOGLOBIN 12.2 g/dl (12.0-16.0); LYMPHOCYTES # 2.5 10^3/ul (0.8-2.9); LYMPHOCYTES % 17.3 % (15.0-51.0); MEAN CORPUSCULAR HEMOGLOBIN 26.8 pg (29.0-33.0); MEAN CORPUSCULAR HGB CONC 34.2 g/dl (32.0-37.0); MEAN CORPUSCULAR VOLUME 78.5 fl (82.0-101.0); MEAN PLATELET VOLUME 12.8 fl (7.4-10.4); MONOCYTE # 0.6 10^3/ul (0.3-0.9); MONOCYTES % 3.9 % (0.0-11.0); PLATELET COUNT 161 10^3/UL (140-415); RED BLOOD COUNT 4.55 10^6/ul (4.20-5.40); RED CELL DISTRIBUTION WIDTH 13.2 % (11.5-14.5)
[2018-06-05 22:44] LABS: WHITE BLOOD COUNT 14.2 10^3/ul (4.8-10.8)
[2018-06-05 22:45] LABS: ADD UMIC YES; UR ASCORBIC ACID NEGATIVE (NEGATIVE); UR BILIRUBIN (Dip) NEGATIVE (NEGATIVE); UR BLOOD (Dip) 1+ mg/dL (NEGATIVE); UR CLARITY CLOUDY (CLEAR); UR COLOR STRAW (YELLOW); UR GLUCOSE (Dip) 3+ mg/dL (NEGATIVE); UR KETONES (Dip) NEGATIVE (NEGATIVE); UR LEUKOCYTE ESTERASE (Dip) 3+ Leu/ul (NEGATIVE); UR NITRITE (Dip) NEGATIVE (NEGATIVE); UR RBC 1 /HPF (0-5); UR SPECIFIC GRAVITY (Dip) 1.021 (1.003-1.030); UR TOTAL PROTEIN (Dip) NEGATIVE (NEGATIVE); UR UROBILINOGEN (Dip) NEGATIVE (NEGATIVE); UR WBC > 182 /HPF (0-5)
[2018-06-05 23:06] LABS: ALANINE AMINOTRANSFERASE 34 IU/L (13-69); ALBUMIN/GLOBULIN RATIO 1.11; ALKALINE PHOSPHATASE 210 IU/L (42-121); ANION GAP 16 (8-16); ASPARTATE AMINO TRANSFERASE 32 IU/L (15-46); BILIRUBIN,INDIRECT 0.5 mg/dl (0-1.1); BILIRUBIN,TOTAL 0.5 mg/dl (0.2-1.3); BLOOD UREA NITROGEN 17 mg/dl (7-20); CALCIUM 9.9 mg/dl (8.4-10.2); CARBON DIOXIDE 32 mmol/L (21-31); CHLORIDE 91 mmol/L (97-110); POTASSIUM 4.7 mmol/L (3.5-5.1); SODIUM 134 mmol/L (135-144); TOTAL PROTEIN 7.6 g/dl (6.1-8.1)
[2018-06-05 23:16] LABS: GLUCOSE 670 mg/dl (70-220)
[2018-06-05] MEDS: CEFTRIAXONE 1 GM/50 ML (PMX) 50 ML IVPB (23:27)
[2018-06-05] MEDS: SOD CHLORIDE 0.9% 2,000 ML IV (23:53)
[2018-06-06] MEDS: INSULIN LISPRO 100 UNIT/ML VIAL SC (00:04)
== END 2018-06-06 02:00 | disposition home or self-care (01) ==
LOC: E/R 06-06 02:00
DX: N30.00 Acute cystitis without hematuria (principal); E11.65 Type 2 diabetes mellitus with hyperglycemia; I10 Essential (primary) hypertension; Z79.84 Long term (current) use of oral hypoglycemic drugs
CPT/HCPCS: 36415; 71250; 80053; 81001; 82962; 85025; 87086; 96372; 96374; 99285-25

== ENCOUNTER 2018-09-07 20:05 | Emergency (ER) | payer MEDICARE, OTHER ==
[2018-09-07] MEDS: KETOROLAC 30 MG INJ IM (21:14)
== END 2018-09-07 22:55 | disposition home or self-care (01) ==
LOC: FTE 20:05
DX: M79.672 Pain in left foot (principal); E11.9 Type 2 diabetes mellitus without complications; I10 Essential (primary) hypertension; Z79.4 Long term (current) use of insulin
CPT/HCPCS: 73630; 73630-LT; 96372; 99284-25

== ENCOUNTER 2018-10-12 10:33 | Emergency (ER) | payer MEDICARE, OTHER ==
[2018-10-12 11:45] LABS: ADD UMIC YES; UR ASCORBIC ACID NEGATIVE (NEGATIVE); UR BACTERIA MODERATE /HPF (NONE SEEN); UR BILIRUBIN (Dip) NEGATIVE (NEGATIVE); UR BLOOD (Dip) NEGATIVE (NEGATIVE); UR CLARITY CLOUDY (CLEAR); UR COLOR YELLOW (YELLOW); UR GLUCOSE (Dip) 3+ mg/dL (NEGATIVE); UR KETONES (Dip) NEGATIVE (NEGATIVE); UR LEUKOCYTE ESTERASE (Dip) 3+ Leu/ul (NEGATIVE); UR NITRITE (Dip) NEGATIVE (NEGATIVE); UR RBC 2 /HPF (0-5); UR SPECIFIC GRAVITY (Dip) 1.012 (1.003-1.030); UR SQUAMOUS EPITHELIAL CELL MODERATE /HPF (FEW); UR TOTAL PROTEIN (Dip) NEGATIVE (NEGATIVE); UR UROBILINOGEN (Dip) NEGATIVE (NEGATIVE); UR WBC 98 /HPF (0-5)
== END 2018-10-12 12:03 | disposition home or self-care (01) ==
LOC: E/R 10:33
DX: N30.00 Acute cystitis without hematuria (principal); I10 Essential (primary) hypertension; E11.9 Type 2 diabetes mellitus without complications; Z79.4 Long term (current) use of insulin
CPT/HCPCS: 81001; 87086; 99283-25

== ENCOUNTER 2018-11-29 09:43 | Emergency (ER) | payer MEDICARE, OTHER ==
[2018-11-29 11:12] LABS: ADD UMIC YES; UR ASCORBIC ACID NEGATIVE (NEGATIVE); UR BACTERIA FEW /HPF (NONE SEEN); UR BILIRUBIN (Dip) NEGATIVE (NEGATIVE); UR BLOOD (Dip) 1+ mg/dL (NEGATIVE); UR CLARITY CLOUDY (CLEAR); UR COLOR YELLOW (YELLOW); UR GLUCOSE (Dip) 3+ mg/dL (NEGATIVE); UR KETONES (Dip) NEGATIVE (NEGATIVE); UR LEUKOCYTE ESTERASE (Dip) 3+ Leu/ul (NEGATIVE); UR NITRITE (Dip) NEGATIVE (NEGATIVE); UR RBC 7 /HPF (0-5); UR TOTAL PROTEIN (Dip) NEGATIVE (NEGATIVE); UR UROBILINOGEN (Dip) NEGATIVE (NEGATIVE); UR WBC > 182 /HPF (0-5)
[2018-11-29] MEDS: SOD CHLORIDE 0.9% 1,000 ML IV ×2 (11:12→13:02)
[2018-11-29 11:14] LABS: ADD MAN DIFF? NO
[2018-11-29 11:21] LABS: WHITE BLOOD COUNT 8.4 10^3/ul (4.8-10.8)
[2018-11-29 11:21] LABS: BASOPHILS % 0.4 % (0.0-2.0); EOSINOPHILS # 0.2 10^3/ul (0.0-0.5); EOSINOPHILS % 2.5 % (0.0-7.0); HEMATOCRIT 37.5 % (37.0-47.0); HEMOGLOBIN 12.4 g/dl (12.0-16.0); LYMPHOCYTES % 24.1 % (15.0-51.0); MEAN CORPUSCULAR HEMOGLOBIN 26.3 pg (29.0-33.0); MEAN CORPUSCULAR HGB CONC 33.1 g/dl (32.0-37.0); MEAN CORPUSCULAR VOLUME 79.6 fl (82.0-101.0); MONOCYTE # 0.3 10^3/ul (0.3-0.9); MONOCYTES % 3.9 % (0.0-11.0); NEUTROPHIL # 5.8 10^3/ul (1.6-7.5); NEUTROPHILS % 68.6 % (39.0-77.0); PLATELET COUNT 169 10^3/UL (140-415); RED BLOOD COUNT 4.71 10^6/ul (4.20-5.40); RED CELL DISTRIBUTION WIDTH 13.4 % (11.5-14.5)
[2018-11-29 11:37] LABS: ALANINE AMINOTRANSFERASE 32 IU/L (13-69); ALBUMIN 4.1 g/dl (3.3-4.9); ALBUMIN/GLOBULIN RATIO 1.28; ALKALINE PHOSPHATASE 143 IU/L (42-121); ANION GAP 8 (5-13); ASPARTATE AMINO TRANSFERASE 23 IU/L (15-46); BILIRUBIN,INDIRECT 0.6 mg/dl (0-1.1); BILIRUBIN,TOTAL 0.6 mg/dl (0.2-1.3); BLOOD UREA NITROGEN 16 mg/dl (7-20); CARBON DIOXIDE 32 mmol/L (21-31); CHLORIDE 97 mmol/L (97-110); CREATININE 0.59 mg/dl (0.44-1.00); Estimated GFR > 60 mL/min (>60); POTASSIUM 4.3 mmol/L (3.5-5.1); SODIUM 137 mmol/L (135-144); TOTAL PROTEIN 7.3 g/dl (6.1-8.1)
[2018-11-29 11:42] LABS: GLUCOSE 471 mg/dl (70-220)
[2018-11-29 11:53] LABS: MODE ROOM AIR; MetHgb Venous 0 %; Sample Type Blood venous; Site VENOUS LINE; Venous COHb 0.3 %; Venous Fraction OxyHgb 60.2 %; Venous Oxygen Sat 60.4 mmHG (55.0-75.0); Venous Total Hemglobin 11.7 g/dl
[2018-11-29] MEDS: INSULIN LISPRO 100 UNIT/ML VIAL SC (11:56)
== END 2018-11-29 14:28 | disposition home or self-care (01) ==
LOC: FTE 09:43
DX: N39.0 Urinary tract infection, site not specified (principal); E11.65 Type 2 diabetes mellitus with hyperglycemia; I10 Essential (primary) hypertension; Z79.4 Long term (current) use of insulin
CPT/HCPCS: 36415; 71045; 80053; 81001; 82803; 82962; 85025; 87086; 96360; 96361; 96372; 99284-25

== ENCOUNTER 2018-12-03 20:57 | Emergency (ER) | payer MEDICARE, OTHER ==
[2018-12-03 23:28] LABS: ADD MAN DIFF? NO
[2018-12-03 23:30] LABS: BASOPHILS % 0.4 % (0.0-2.0); EOSINOPHILS # 0.4 10^3/ul (0.0-0.5); EOSINOPHILS % 4.1 % (0.0-7.0); HEMATOCRIT 39.3 % (37.0-47.0); HEMOGLOBIN 13.2 g/dl (12.0-16.0); LYMPHOCYTES # 3.7 10^3/ul (0.8-2.9); LYMPHOCYTES % 34.6 % (15.0-51.0); MEAN CORPUSCULAR HEMOGLOBIN 26.6 pg (29.0-33.0); MEAN CORPUSCULAR HGB CONC 33.6 g/dl (32.0-37.0); MEAN CORPUSCULAR VOLUME 79.2 fl (82.0-101.0); MEAN PLATELET VOLUME 11.8 fl (7.4-10.4); MONOCYTE # 0.6 10^3/ul (0.3-0.9); MONOCYTES % 5.8 % (0.0-11.0); NEUTROPHIL # 5.8 10^3/ul (1.6-7.5); NEUTROPHILS % 54.8 % (39.0-77.0); PLATELET COUNT 183 10^3/UL (140-415); RED BLOOD COUNT 4.96 10^6/ul (4.20-5.40); RED CELL DISTRIBUTION WIDTH 13.6 % (11.5-14.5)
[2018-12-03 23:30] LABS: WHITE BLOOD COUNT 10.6 10^3/ul (4.8-10.8)
[2018-12-03 23:50] LABS: ADD UMIC YES; UR ASCORBIC ACID NEGATIVE (NEGATIVE); UR BILIRUBIN (Dip) NEGATIVE (NEGATIVE); UR BLOOD (Dip) NEGATIVE (NEGATIVE); UR CLARITY CLEAR (CLEAR); UR COLOR YELLOW (YELLOW); UR GLUCOSE (Dip) 3+ mg/dL (NEGATIVE); UR KETONES (Dip) NEGATIVE (NEGATIVE); UR LEUKOCYTE ESTERASE (Dip) NEGATIVE Leu/ul (NEGATIVE); UR NITRITE (Dip) NEGATIVE (NEGATIVE); UR RBC 1 /HPF (0-5); UR SPECIFIC GRAVITY (Dip) 1.015 (1.003-1.030); UR TOTAL PROTEIN (Dip) 1+ mg/dl (NEGATIVE); UR UROBILINOGEN (Dip) NEGATIVE (NEGATIVE); UR WBC 3 /HPF (0-5)
[2018-12-03] MEDS: SOD CHLORIDE 0.9% 500 ML IV (23:50)
[2018-12-03 23:56] LABS: ALANINE AMINOTRANSFERASE 29 IU/L (13-69); ALBUMIN 4.4 g/dl (3.3-4.9); ALBUMIN/GLOBULIN RATIO 1.22; ALKALINE PHOSPHATASE 174 IU/L (42-121); ANION GAP 13 (5-13); ASPARTATE AMINO TRANSFERASE 38 IU/L (15-46); BILIRUBIN,INDIRECT 0.3 mg/dl (0-1.1); BILIRUBIN,TOTAL 0.3 mg/dl (0.2-1.3); BLOOD UREA NITROGEN 19 mg/dl (7-20); CALCIUM 9.8 mg/dl (8.4-10.2); CARBON DIOXIDE 28 mmol/L (21-31); CHLORIDE 99 mmol/L (97-110); Estimated GFR > 60 mL/min (>60); GLUCOSE 225 mg/dl (70-220); POTASSIUM 3.9 mmol/L (3.5-5.1); SODIUM 140 mmol/L (135-144)
[2018-12-04 00:04] LABS: B-TYPE NATRIURETIC PEPTIDE 693 PG/ML (0-125)
[2018-12-04 00:09] LABS: TROPONIN-I < 0.012 ng/ml (0.000-0.120)
== END 2018-12-04 01:37 | disposition home or self-care (01) ==
LOC: E/R 20:57
DX: N39.0 Urinary tract infection, site not specified (principal); I10 Essential (primary) hypertension; E11.9 Type 2 diabetes mellitus without complications; Z79.4 Long term (current) use of insulin
CPT/HCPCS: 36415; 71045; 80053; 81001; 82962; 83880; 84484; 85025; 87086; 93005; 99285-25

== ENCOUNTER 2019-03-24 18:09 | Emergency (ER) | payer MEDICARE, OTHER ==
[2019-03-24 19:40] LABS: ADD MAN DIFF? NO
[2019-03-24 19:45] LABS: BASOPHILS % 0.4 % (0.0-2.0); EOSINOPHILS # 0.3 10^3/ul (0.0-0.5); EOSINOPHILS % 3.5 % (0.0-7.0); HEMATOCRIT 36.6 % (37.0-47.0); HEMOGLOBIN 12.6 g/dl (12.0-16.0); LYMPHOCYTES % 36.8 % (15.0-51.0); MEAN CORPUSCULAR HEMOGLOBIN 27.3 pg (29.0-33.0); MEAN CORPUSCULAR HGB CONC 34.4 g/dl (32.0-37.0); MEAN CORPUSCULAR VOLUME 79.2 fl (82.0-101.0); MEAN PLATELET VOLUME 11.8 fl (7.4-10.4); MONOCYTE # 0.4 10^3/ul (0.3-0.9); MONOCYTES % 4.6 % (0.0-11.0); NEUTROPHIL # 4.4 10^3/ul (1.6-7.5); NEUTROPHILS % 54.6 % (39.0-77.0); PLATELET COUNT 166 10^3/UL (140-415); RED BLOOD COUNT 4.62 10^6/ul (4.20-5.40); RED CELL DISTRIBUTION WIDTH 13.2 % (11.5-14.5)
[2019-03-24 19:55] LABS: ADD UMIC NO; UR ASCORBIC ACID NEGATIVE (NEGATIVE); UR BILIRUBIN (Dip) NEGATIVE (NEGATIVE); UR BLOOD (Dip) NEGATIVE (NEGATIVE); UR CLARITY CLEAR (CLEAR); UR COLOR YELLOW (YELLOW); UR GLUCOSE (Dip) 2+ mg/dL (NEGATIVE); UR KETONES (Dip) NEGATIVE (NEGATIVE); UR LEUKOCYTE ESTERASE (Dip) NEGATIVE Leu/ul (NEGATIVE); UR NITRITE (Dip) NEGATIVE (NEGATIVE); UR TOTAL PROTEIN (Dip) NEGATIVE (NEGATIVE); UR UROBILINOGEN (Dip) NEGATIVE (NEGATIVE)
[2019-03-24 20:01] LABS: ALANINE AMINOTRANSFERASE 33 IU/L (13-69); ALBUMIN 3.9 g/dl (3.3-4.9); ALBUMIN/GLOBULIN RATIO 1.14; ALKALINE PHOSPHATASE 137 IU/L (42-121); ANION GAP 5 (5-13); ASPARTATE AMINO TRANSFERASE 33 IU/L (15-46); BILIRUBIN,INDIRECT 0.5 mg/dl (0-1.1); BILIRUBIN,TOTAL 0.5 mg/dl (0.2-1.3); BLOOD UREA NITROGEN 14 mg/dl (7-20); CALCIUM 9.5 mg/dl (8.4-10.2); CARBON DIOXIDE 33 mmol/L (21-31); CHLORIDE 102 mmol/L (97-110); CREATININE 0.85 mg/dl (0.44-1.00); GLUCOSE 183 mg/dl (70-220); LIPASE 141 U/L (23-300); POTASSIUM 4.2 mmol/L (3.5-5.1); SODIUM 140 mmol/L (135-144); TOTAL PROTEIN 7.3 g/dl (6.1-8.1)
[2019-03-24 20:13] LABS: TROPONIN-I < 0.012 ng/ml (0.000-0.120)
== END 2019-03-24 23:36 | disposition home or self-care (01) ==
LOC: E/R 23:36
DX: I10 Essential (primary) hypertension (principal); E11.9 Type 2 diabetes mellitus without complications; Z79.4 Long term (current) use of insulin; Z79.84 Long term (current) use of oral hypoglycemic drugs
CPT/HCPCS: 36415; 71045; 74176; 80053; 81003; 83690; 84484; 85025; 93005; 99285-25

== ENCOUNTER 2019-03-31 22:11 | Emergency (ER) | payer MEDICARE, OTHER ==
[2019-03-31] MEDS: SOD CHLORIDE 0.9% 600 ML IV (22:50)
[2019-03-31 22:53] LABS: ADD MAN DIFF? NO
[2019-03-31 23:02] LABS: ADD UMIC YES; UR ASCORBIC ACID NEGATIVE (NEGATIVE); UR BILIRUBIN (Dip) NEGATIVE (NEGATIVE); UR BLOOD (Dip) NEGATIVE (NEGATIVE); UR CLARITY CLEAR (CLEAR); UR COLOR STRAW (YELLOW); UR GLUCOSE (Dip) 3+ mg/dL (NEGATIVE); UR KETONES (Dip) NEGATIVE (NEGATIVE); UR LEUKOCYTE ESTERASE (Dip) TRACE Leu/ul (NEGATIVE); UR NITRITE (Dip) NEGATIVE (NEGATIVE); UR RBC 1 /HPF (0-5); UR SQUAMOUS EPITHELIAL CELL FEW /HPF (FEW); UR TOTAL PROTEIN (Dip) NEGATIVE (NEGATIVE); UR UROBILINOGEN (Dip) NEGATIVE (NEGATIVE); UR WBC 1 /HPF (0-5)
[2019-03-31 23:03] LABS: WHITE BLOOD COUNT 7.7 10^3/ul (4.8-10.8)
[2019-03-31 23:03] LABS: BASOPHILS % 0.4 % (0.0-2.0); EOSINOPHILS # 0.3 10^3/ul (0.0-0.5); EOSINOPHILS % 3.2 % (0.0-7.0); HEMATOCRIT 36.3 % (37.0-47.0); HEMOGLOBIN 12.4 g/dl (12.0-16.0); LYMPHOCYTES # 2.5 10^3/ul (0.8-2.9); LYMPHOCYTES % 31.8 % (15.0-51.0); MEAN CORPUSCULAR HEMOGLOBIN 27.2 pg (29.0-33.0); MEAN CORPUSCULAR HGB CONC 34.2 g/dl (32.0-37.0); MEAN CORPUSCULAR VOLUME 79.6 fl (82.0-101.0); MONOCYTE # 0.4 10^3/ul (0.3-0.9); MONOCYTES % 5.7 % (0.0-11.0); NEUTROPHIL # 4.5 10^3/ul (1.6-7.5); NEUTROPHILS % 58.4 % (39.0-77.0); PLATELET COUNT 179 10^3/UL (140-415); RED BLOOD COUNT 4.56 10^6/ul (4.20-5.40)
[2019-03-31 23:10] LABS: MODE ROOM AIR; MetHgb Venous 0.3 %; Sample Type Blood venous; Site VENOUS LINE; Venous COHb 1.9 %; Venous Fraction OxyHgb 55.9 %; Venous Oxygen Sat 57.2 mmHG (55.0-75.0); Venous Total Hemglobin 13.8 g/dl
[2019-03-31 23:23] LABS: ANION GAP 11 (5-13); BLOOD UREA NITROGEN 18 mg/dl (7-20); CALCIUM 9.3 mg/dl (8.4-10.2); CARBON DIOXIDE 26 mmol/L (21-31); CHLORIDE 101 mmol/L (97-110); CREATININE 0.69 mg/dl (0.44-1.00); MAGNESIUM 1.7 mg/dl (1.7-2.5); PHOSPHORUS 4.5 mg/dl (2.5-4.9); POTASSIUM 4.7 mmol/L (3.5-5.1); SODIUM 138 mmol/L (135-144)
[2019-03-31 23:33] LABS: GLUCOSE 638 mg/dl (70-220)
[2019-04-01] MEDS: INSULIN REGULAR, HUMAN 100 UNIT/1 ML 3ML VIAL SC (00:29)
== END 2019-04-01 01:04 | disposition home or self-care (01) ==
LOC: E/R 04-01 01:04
DX: E11.65 Type 2 diabetes mellitus with hyperglycemia (principal); I10 Essential (primary) hypertension; Z79.4 Long term (current) use of insulin
CPT/HCPCS: 36415; 80048; 81001; 82803; 82962; 83735; 84100; 85025; 96372; 99284-25

== ENCOUNTER 2019-04-14 12:01 | Emergency (ER) | payer MEDICARE, OTHER ==
[2019-04-14] MEDS: ACETAMINOPHEN 325 MG TAB PO (13:35)
[2019-04-14] MEDS: SOD CHLORIDE 0.9% 1,000 ML IV (13:35)
== END 2019-04-14 14:55 | disposition home or self-care (01) ==
LOC: FTE 12:01
DX: J06.9 Acute upper respiratory infection, unspecified (principal); I10 Essential (primary) hypertension; E11.9 Type 2 diabetes mellitus without complications; Z79.4 Long term (current) use of insulin
CPT/HCPCS: 82962; 99284-25